=== PATIENT | female | born 1955 | race Caucasian/White ===

== ENCOUNTER → 2023-01-20 10:37 | Outpatient (CLI) | payer MEDICARE, SELFPAY ==
--- NOTE | 2023-01-20 | DI.RAD.S_ITS ---
PROCEDURE: XR HIP W PEL IF DONE LT 2V INDICATIONS: HIP PAIN TECHNIQUE: AP pelvis with lateral view(s) of the left hip(s). COMPARISON: None. FINDINGS: Bones: No fractures or dislocations. Pelvic ring appears intact. No suspicious bony lesions. No definite or substantial hip joint space narrowing identified bilaterally. Possible mild spurring of both hips. Soft tissues: The visualized bowel gas pattern is normal. No suspicious soft tissue calcifications. IMPRESSION: No acute osseous abnormality. If symptoms persist, follow-up radiographs and/or CT or MRI may be helpful for further evaluation. Dictated by: Yonny Rob M.D. on 01/20/2023 at 12:57 Approved by: Yonny Rob M.D. on 01/20/2023 at 13:03
--- NOTE | 2023-01-20 | DI.RAD.S_ITS ---
PROCEDURE: XR LUMBAR SPINE 2-3V INDICATIONS: Low back pain, unspecified TECHNIQUE: 3 views of the lumbar spine were acquired. COMPARISON: None. FINDINGS: Bones: 5 [id number] vertebrae are present. No lumbar vertebral body compression fracture identified. Moderate-severe multilevel degenerative changes with disc height loss, endplate spurring, and facet arthropathy. Soft tissues: Overlying bowel gas pattern is normal. No suspicious soft tissue calcifications. IMPRESSION: Multilevel degenerative changes of the lumbar spine. Dictated by: Yonny Rob M.D. on 01/20/2023 at 12:37 Approved by: Yonny Rob M.D. on 01/20/2023 at 12:41
== END ==
PROVIDERS: PCP Physician Assistant; Referring Provider Physician Assistant; Visit Provider Physician Assistant
DX: M19.90 Unspecified osteoarthritis, unspecified site (principal); M25.552 Pain in left hip
CPT/HCPCS: 72100; 73502

== ENCOUNTER → 2024-04-12 09:18 | Outpatient (CLI) | payer MEDICARE, SELFPAY ==
--- NOTE | 2024-04-12 09:20 | DI.ECHO.S_ITS ---
[facility]+ [facility] : : [address] : : [place] : : [id number] : : Phone: [phone] Echocardiogram Report + + :Name: TONE YEUNG Study Date: 04/12/2024 Height: 60 in : :Hospital ReadingLocation: Weight: 170 lb : : Gender: Female BSA: 1.7 m2 : :: 1955 Age: 68 yrs BP: 115/89 mmHg: :Reason For Study: ATHEROSCLEROTIC HEART DISEASE : :Ordering Physician: MARICEL, : :VIJAYA Roger Performed By: Og Mijares : :Referring: VIJAYA CONNELLY : + + Interpretation Summary Normal sinus rhythm. Normal LV size, wall thickness, wall motion and LV systolic function. EF is 50-55%. Stage I diastolic dysfunction. Normal chamber sizes. No valve abnormalities. No prior study available for comparison. Procedure: A two-dimensional transthoracic echocardiogram with color flow and Doppler was performed. The study quality was technically adequate. There is no prior echocardiogram noted for this patient. The patient was in sinus rhythm with heart rates between 65-72 bpm during the exam. Left Ventricle: The left ventricle is normal in size and wall thickness. The ejection fraction is estimated to be 50-55%. Right Ventricle: The right ventricle is normal size. The right ventricular systolic function is normal. Atria: The left atrial size is normal. Right atrial size is normal. The interatrial septum grossly appears intact with no obvious evidence for an atrial septal defect. Mitral Valve: The mitral valve is normal. There is no mitral valve stenosis. There is no mitral regurgitation noted. Aortic Valve: The aortic valve is not well visualized. There is no aortic valve stenosis. No aortic regurgitation is present. Tricuspid Valve: The tricuspid valve is normal. There is no tricuspid stenosis. No tricuspid regurgitation. Pulmonic Valve: The pulmonic valve is not well visualized. There is no pulmonic valvular stenosis. There is no pulmonic valvular regurgitation. Great Vessels: The aortic root is normal size. The ascending aorta could not be visualized. The IVC is of normal diameter and collapses greater than 50% with a sniff. This suggests a low right atrial pressure of 3 mm Hg. Pericardium/ Pleura There is no pericardial effusion. There is no pleural effusion. MMode/2D Measurements & Calculations LVIDd: 3.3 cm LVOT diam: 2.1 cm LVIDs: 2.1 cm Ao root diam: 3.1 cm FS: 35.1 % asc Aorta Diam: 3.5 cm IVSd: 0.97 cm LVPWd: 1.0 cm LV doyle. diameter/BSA (cm/m^2): 1.9 LV sys. diameter/BSA (cm/m^2): 1.2 LA A2 area: 15.6 cm2 RA long axis: 4.7 cm LA A4 area: 13.0 cm2 RA area: 15.1 cm2 LA length (vol): 4.3 cm RA vol: 41.2 ml LA vol: 39.8 ml RA : 23.7 ml/m2 LA vol index: 22.8 ml/m2 IVC diam: 1.2 cm RVD1 (basal): 3.1 cm RVD2 (mid): 2.9 cm TAPSE: 2.1 cm Doppler Measurements & Calculations Ao V2 max: 127.6 cm/sec LVOT Max Miles: 88.0 cm/sec Ao V2 mean: 92.3 cm/sec LV V1 max P.1 mmHg Ao max P.5 mmHg LV V1 VTI: 19.0 cm Ao mean P.8 mmHg MONIE(I,D): 2.4 cm2 Ao V2 VTI: 26.7 cm MONIE(V,D): 2.4 cm2 sev ratio: 0.71 MONIE indexed to BSA (cm^2/m^2): 1.4 MV E max miles: 65.2 cm/sec PA V2 max: 84.1 cm/sec MV A max miles: 87.4 cm/sec PA V2 mean: 57.4 cm/sec MV E/A: 0.75 PA mean P.5 mmHg Med Peak E' Miles: 5.2 cm/sec PA pr(Accel): 32.8 mmHg E/E' med: 12.6 Lat Peak E' Miles: 8.2 cm/sec E/E' lat: 7.9 E/e' average: 10.2 MV dec time: 0.20 sec SV(LVOT): 64.8 ml Electronically signed by: Katya Epperson M.D. on Reading Physician:04/13/2024 04:45 AM
--- NOTE | 2024-04-12 17:00 | DI.NM.S_ITS ---
DATE OF SERVICE: 04/12/2024 PROCEDURE: Exercise perfusion study. INDICATIONS: Exertional shortness of breath with underlying CAD and dyslipidemia. RADIOPHARMACEUTICAL: 24.9 mCi technetium-99m Myoview IV was injected at stress and 11.8 mCi technetium-99m Myoview IV was injected at rest. CARDIAC STRESS: The patient underwent exercise perfusion study under the supervision of an attending staff. The patient walked on Markus protocol for 6 minutes and achieved maximum heart rate of 155, which was 103% of target heart rate. 7 METs of workload. OLI positive 13%. Normal blood pressure response. Resting blood pressure 110/78. Peak blood pressure reported to be 152/100 mmHg. Baseline rhythm was sinus. During stress, no convincing ischemic changes seen. No significant arrhythmias. No chest pain. Had shortness of breath. RAW DATA: There is a breast shadow seen. GATED STUDY: Resting LV ejection fraction 78% and stress LV ejection fraction 84% without any obvious wall motion abnormalities. Resting end- diastolic volume 45 mL. TID ratio 1.09, which is within normal limits. Lung/heart ratio 0.33, which is within normal limits. MYOCARDIAL PERFUSION SCAN: Stress supine, resting supine, and stress prone images were compared to each other. Stress supine and resting supine images revealed small size, mildly decreased perfusion of distal anterior wall, which got resolved during stress prone images suggestive of breast tissue attenuation artifact. Summed stress and summed rest score are zero. CONCLUSION: This is a normal myocardial perfusion study with evidence of breast tissue attenuation artifact, which got resolved during stress prone images. Fair exercise tolerance. No ischemic EKG changes. No angina. Preserved left ventricular function. Overall, low-risk exercise stress test. Tiffanie Valentin - [employer]/fn/GA doc#: [id number]/job#: [id number] dd: 04/12/2024 16:37:00 dt: 04/12/2024 16:49:00 DICTATING MD/COPIES TO: Bambi Velazquez MD COPIES MNE: MIGUEL ANGEL;
== END ==
LOC: NUCM 09:18
PROVIDERS: PCP Physician Assistant; Referring Provider Internal Medicine Cardiovascular Disease; Visit Provider Internal Medicine Cardiovascular Disease
DX: I25.10 Atherosclerotic heart disease of native coronary artery without angina pectoris (principal); I25.84 Coronary atherosclerosis due to calcified coronary lesion; R06.09 Other forms of dyspnea; E78.5 Hyperlipidemia, unspecified; R06.02 Shortness of breath
CPT/HCPCS: 78452; 93017; 93306; A9502

== ENCOUNTER → 2025-02-08 07:25 | Outpatient (CLI) | payer MEDICARE, SELFPAY ==
[2025-02-08 08:16] LABS: COVID-19 CEPHEID 4-PLEX PCR Negative (Negative); Influenza A - CEPHEID Flu A NEGATIVE (NEGATIVE); Influenza B - CEPHEID Flu B NEGATIVE (NEGATIVE); Respiratory Syncytial Virus Negative (Negative)
== END ==
PROVIDERS: PCP Physician Assistant; Visit Provider Chiropractor
DX: J02.9 Acute pharyngitis, unspecified (principal)
CPT/HCPCS: 0241U; 87070

== ENCOUNTER → 2025-04-02 16:01 | Outpatient (CLI) | payer MEDICARE, SELFPAY ==
--- NOTE | 2025-04-02 16:02 | DI.RAD.S_ITS ---
PROCEDURE: XR CHEST 2V INDICATIONS: cough TECHNIQUE: 2 views of the chest were acquired. COMPARISON: None. FINDINGS: Surgical changes and devices: None. Lungs and pleura: Lungs are clear. No pleural effusions or pneumothorax. Mediastinum: Mediastinal contours are normal. Heart size is normal. Bones and chest wall: No suspicious bony abnormalities. Soft tissues appear unremarkable. IMPRESSION: No acute cardiopulmonary pathology. Dictated by: Yoshi Harris M.D. on 04/03/2025 at 15:38 Approved by: Yoshi Harris M.D. on 04/03/2025 at 15:38
== END ==
PROVIDERS: PCP Physician Assistant; Referring Provider Physician Assistant Medical; Visit Provider Physician Assistant Medical
DX: R05.9 Cough, unspecified (principal)
CPT/HCPCS: 71046